=== PATIENT | female | born 1990 | race Caucasian/White ===

== ENCOUNTER 2017-03-04 19:44 | Emergency (ER) | payer MEDICAID ==
[2017-03-04 22:00] VITALS: BP 126/65
== END 2017-03-04 22:00 | disposition home or self-care (01) ==
LOC: ED 19:44
DX: K08.89 Other specified disorders of teeth and supporting structures (principal)
CPT/HCPCS: J2001

== ENCOUNTER 2017-05-16 19:20 | Emergency (ER) | payer MEDICAID ==
[~2017-05-16] VITALS: Ht 165.1 cm; Wt 59.5 kg
[2017-05-16 20:17] VITALS: BP 101/74
== END 2017-05-16 20:17 | disposition home or self-care (01) ==
LOC: ED 19:20
DX: O26.892 Other specified pregnancy related conditions, second trimester (principal); J06.9 Acute upper respiratory infection, unspecified; J02.9 Acute pharyngitis, unspecified; Z3A.22 22 weeks gestation of pregnancy

== ENCOUNTER 2017-06-21 02:56 | Emergency (ER) | payer MEDICAID ==
[~2017-06-21] VITALS: Ht 165.1 cm; Wt 59.6 kg
[2017-06-21 03:01] VITALS: BP 126/69; Ht 165.1 cm; Wt 59.6 kg
== END 2017-06-21 05:55 | disposition left against medical advice (07) ==
LOC: ED 02:56
DX: Z53.21 Procedure and treatment not carried out due to patient leaving prior to being seen by health care provider (principal)

== ENCOUNTER 2017-07-13 16:02 | Emergency (ER) | payer MEDICAID ==
[~2017-07-13] VITALS: Ht 165.1 cm; Wt 60.3 kg
[2017-07-13 16:08] VITALS: Ht 165.1 cm; Wt 60.3 kg
[2017-07-13 16:40] VITALS: BP 128/74
== END 2017-07-13 16:40 | disposition home or self-care (01) ==
LOC: ED 16:02
DX: J02.9 Acute pharyngitis, unspecified (principal)

== ENCOUNTER 2017-07-13 20:59 | Emergency (ER) | payer MEDICAID ==
[~2017-07-13] VITALS: Ht 165.1 cm; Wt 59.9 kg
[2017-07-13 21:04] VITALS: Ht 165.1 cm; Wt 59.9 kg
[2017-07-13 22:08] VITALS: BP 106/65
== END 2017-07-13 22:08 | disposition home or self-care (01) ==
LOC: ED 20:59
DX: O98.513 Other viral diseases complicating pregnancy, third trimester (principal); O21.9 Vomiting of pregnancy, unspecified; Z3A.29 29 weeks gestation of pregnancy

== ENCOUNTER 2020-05-04 05:58 | Emergency (ER) | payer SELFPAY | END 2020-05-04 06:40 | disposition home or self-care (01) | LOC: ED | DX: S16.1XXA Strain of muscle, fascia and tendon at neck level, initial encounter (principal); R51.9 Headache, unspecified; X58.XXXA Exposure to other specified factors, initial encounter; Y93.89 Activity, other specified; Y92.89 Other specified places as the place of occurrence of the external cause; Y99.8 Other external cause status ==